=== PATIENT | female | born 1960 | race Hispanic/Latino ===

== ENCOUNTER 2020-11-08 15:09 | Inpatient (IN) | payer MEDICAID ==
[2020-11-08] VITALS (16 sets, daily range): BP systolic 169–213; BP diastolic 72–161
[~2020-11-08] VITALS: Ht 157.5 cm; Wt 51.3 kg
[2020-11-08 18:16] LABS: BASOPHILS % (AUTO) 0.6 % (0.0-5.0); EOSINOPHILS % (AUTO) 5.1 % (0.0-8.0); LYMPHOCYTES % (AUTO) 24.5 % (21.0-51.0); MEAN CORPUSCULAR HEMOGLOBIN 28.4 pg (27.0-33.0); MEAN CORPUSCULAR VOLUME 91.7 fL (79-99); MONOCYTES % (AUTO) 5.2 % (3.0-13.0); NEUTROPHILS % (AUTO) 64.1 % (40.0-77.0); PLATELET COUNT (AUTO) 187 K/uL (130-400); RED BLOOD CELL COUNT(AUTO) 3.38 MIL/uL (4.00-5.50); RED CELL DISTRIBUTION WIDTH 14.4 % (11.0-15.5); WHITE BLOOD COUNT (AUTO) 8.6 K/uL (4.8-10.8)
[2020-11-08 18:26] LABS: CREATININE 2.9 mg/dL (0.5-1.5); POTASSIUM 3.3 mmol/L (3.5-5.1)
[2020-11-08 18:27] LABS: PROTHROMBIN TIME 10.9 SEC (9.6-11.6)
[2020-11-08 18:30] LABS: ALBUMIN 2.4 g/dL (3.5-5.0); BILIRUBIN,TOTAL 0.4 mg/dL (0.2-1.0); CRP QUANTITATIVE 38.7 mg/L (0.00-9.0); MAGNESIUM 1.7 mg/dL (1.80-2.40); TOTAL PROTEIN, SERUM 7.9 g/dL (6.0-8.3)
[2020-11-08] MEDS ORDERED: ASPIRIN 81 MG EC TAB PO ONE (18:30)
[2020-11-08] MEDS ORDERED: MAGNESIUM 2GM PREMIX 50ML 50 ML IV SCH (19:00)
[2020-11-08] MEDS ORDERED: POTASSIUM CHLORIDE 20MEQ/100ML 100 ML IV PRN (19:00)
[2020-11-08] MEDS ORDERED: POTASSIUM CHLORIDE 10% ELIXIR 20 MEQ/15 ML UDCUP PO PRN (19:00)
[2020-11-08 19:10] LABS: ABG BASE EXCESS -5.8 mmol/L (-2.0-3.0); ABG HCO3 19.2 mmol/L (21.0-28.0); ABG OXYGEN SATURATION 90.1 % (95.0-99.0); ABG PCO2 36 mmHg (32-45)
[2020-11-08] MEDS: FUROSEMIDE 40MG VIAL IV SCH (19:17)
[2020-11-08] MEDS: CEFEPIME HCL 1 GM VIAL IVP SCH (19:17)
[2020-11-08 21:50] LABS: HEMOGLOBIN A1C 6.7 % (4.0-6.0)
[2020-11-08] MEDS: DOXYCYCLINE HYCLATE 100 MG TABLET PO SCH (22:17)
[2020-11-08] MEDS: SODIUM BICARBONATE 650 MG TAB PO SCH (22:20)
[2020-11-08 22:21] LABS: CREATININE 2.8 mg/dL (0.5-1.5); POTASSIUM 3.5 mmol/L (3.5-5.1); THYROID STIMULATING HORMONE 5.24 uIU/mL (0.36-3.74)
[2020-11-08] MEDS ORDERED: PHARMACY COMMUNICATION MISC SCH (23:30)
[2020-11-09] VITALS (43 sets, daily range): BP systolic 94–192; BP diastolic 53–105
[2020-11-09] MEDS: FUROSEMIDE 40MG VIAL IV SCH ×3 (03:13→18:08)
[2020-11-09] MEDS: NITROGLYCERIN 50MG/D5W 250ML 250 BOT IV SCH ×3 (03:21→16:00)
[2020-11-09 03:52] LABS: BASOPHILS % (AUTO) 0.3 % (0.0-5.0); EOSINOPHILS % (AUTO) 0.5 % (0.0-8.0); LYMPHOCYTES % (AUTO) 31.1 % (21.0-51.0); MEAN CORPUSCULAR HEMOGLOBIN 27.8 pg (27.0-33.0); MEAN CORPUSCULAR HGB CONC 31.1 g/dL (32.0-36.0); MEAN CORPUSCULAR VOLUME 89.4 fL (79-99); MONOCYTES % (AUTO) 8.3 % (3.0-13.0); NEUTROPHILS % (AUTO) 59.5 % (40.0-77.0); PLATELET COUNT (AUTO) 190 K/uL (130-400); RED BLOOD CELL COUNT(AUTO) 3.02 MIL/uL (4.00-5.50); RED CELL DISTRIBUTION WIDTH 14.3 % (11.0-15.5); WHITE BLOOD COUNT (AUTO) 6.1 K/uL (4.8-10.8)
[2020-11-09 04:13] LABS: CREATININE 2.9 mg/dL (0.5-1.5); MAGNESIUM 2.1 mg/dL (1.80-2.40); PHOSPHORUS 5.2 mg/dL (2.5-4.9); POTASSIUM 3.3 mmol/L (3.5-5.1)
[2020-11-09] MEDS: HYDRALAZINE 20MG/ML VIAL IV SCH ×2 (04:20→19:52)
[2020-11-09] MEDS ORDERED: AMLODIPINE 5 MG TAB PO SCH (10:00)
[2020-11-09 10:04] LABS: APPEARANCE,URINE Clear (CLEAR); BILIRUBIN,URINE Negative (NEGATIVE); COLOR,URINE Yellow (YELLOW); GLUCOSE, URINE (UA) Negative (NEGATIVE); KETONES,URINE Negative (NEGATIVE); LEUKOCYTE ESTERASE ,URINE Negative (NEGATIVE); NITRATE,URINE Negative (NEGATIVE); OCCULT BLOOD,URINE Negative (NEGATIVE); PROTEIN,URINE 300 mg/dL (NEGATIVE); UROBILINOGEN,URINE 0.2 mg/dL (0.2-1.0)
[2020-11-09 10:11] LABS: CREATININE 2.8 mg/dL (0.5-1.5); POTASSIUM 3.1 mmol/L (3.5-5.1)
[2020-11-09 10:22] LABS: BACTERIA,URINE None Seen /HPF (None Seen); RBC,URINE None Seen /HPF (0-1); WBC,URINE 0-1 /HPF (0-1)
[2020-11-09] MEDS: ASPIRIN 81 MG EC TAB PO SCH (10:23)
[2020-11-09] MEDS: DOXYCYCLINE HYCLATE 100 MG TABLET PO SCH ×2 (10:23→21:53)
[2020-11-09] MEDS: SODIUM BICARBONATE 650 MG TAB PO SCH ×2 (10:23→21:53)
[2020-11-09] MEDS: KCL 20 MEQ ERTAB PO PRN (10:26)
[2020-11-09] MEDS: TRAMADOL HCL 50 MG TABLET PO PRN ×2 (14:03→20:02)
[2020-11-09] MEDS: CARVEDILOL 12.5 MG TABLET PO SCH ×2 (14:50→21:54)
[2020-11-09 15:34] LABS: CREATINE KINASE, TOTAL 36 U/L (21-232); MYOGLOBIN 83 ng/mL (10-92)
[2020-11-09] MEDS ORDERED: LABETALOL 20MG SYG IV PRN (16:00)
[2020-11-09] MEDS: POTASSIUM CHLORIDE 20MEQ/100ML 100 ML IV PRN (16:51)
[2020-11-09] MEDS: CEFEPIME HCL 1 GM VIAL IVP SCH (18:08)
[2020-11-09] MEDS: AMLODIPINE 5 MG TAB PO SCH (21:53)
[2020-11-10] VITALS (21 sets, daily range): BP systolic 126–163; BP diastolic 51–90
[2020-11-10] MEDS: FUROSEMIDE 40MG VIAL IV SCH ×3 (02:58→18:47)
[2020-11-10 03:40] LABS: BASOPHILS % (AUTO) 0.6 % (0.0-5.0); EOSINOPHILS % (AUTO) 1.5 % (0.0-8.0); HEMATOCRIT 25.5 % (36-48); LYMPHOCYTES % (AUTO) 38.9 % (21.0-51.0); MEAN CORPUSCULAR HEMOGLOBIN 28.8 pg (27.0-33.0); MEAN CORPUSCULAR HGB CONC 31.8 g/dL (32.0-36.0); MEAN CORPUSCULAR VOLUME 90.7 fL (79-99); MONOCYTES % (AUTO) 6.5 % (3.0-13.0); NEUTROPHILS % (AUTO) 52.3 % (40.0-77.0); PLATELET COUNT (AUTO) 162 K/uL (130-400); RED BLOOD CELL COUNT(AUTO) 2.81 MIL/uL (4.00-5.50); RED CELL DISTRIBUTION WIDTH 14.6 % (11.0-15.5); WHITE BLOOD COUNT (AUTO) 5.4 K/uL (4.8-10.8)
[2020-11-10 03:53] LABS: % IRON SATURATION 26.4 % (22-44)
[2020-11-10 03:58] LABS: CREATININE 3.3 mg/dL (0.5-1.5); PHOSPHORUS 4.8 mg/dL (2.5-4.9); POTASSIUM 3.8 mmol/L (3.5-5.1)
[2020-11-10] MEDS: ASPIRIN 81 MG EC TAB PO SCH (09:49)
[2020-11-10] MEDS: CARVEDILOL 12.5 MG TABLET PO SCH ×2 (09:49→21:18)
[2020-11-10] MEDS: DOXYCYCLINE HYCLATE 100 MG TABLET PO SCH ×2 (09:49→21:18)
[2020-11-10] MEDS: AMLODIPINE 5 MG TAB PO SCH ×2 (09:50→21:18)
[2020-11-10] MEDS: SODIUM BICARBONATE 650 MG TAB PO SCH ×2 (09:50→21:18)
[2020-11-10] MEDS: CEFEPIME HCL 1 GM VIAL IVP SCH (18:47)
[2020-11-10] MEDS: TRAMADOL HCL 50 MG TABLET PO PRN (21:19)
[2020-11-11] MEDS: FUROSEMIDE 40MG VIAL IV SCH ×3 (03:16→19:46)
[2020-11-11 04:12] VITALS: BP 157/58
[2020-11-11 05:30] LABS: BASOPHILS % (AUTO) 0.9 % (0.0-5.0); EOSINOPHILS % (AUTO) 4.5 % (0.0-8.0); HEMATOCRIT 28.2 % (36-48); LYMPHOCYTES % (AUTO) 38.6 % (21.0-51.0); MEAN CORPUSCULAR HEMOGLOBIN 28.2 pg (27.0-33.0); MEAN CORPUSCULAR HGB CONC 31.2 g/dL (32.0-36.0); MEAN CORPUSCULAR VOLUME 90.4 fL (79-99); MONOCYTES % (AUTO) 6.2 % (3.0-13.0); NEUTROPHILS % (AUTO) 49.6 % (40.0-77.0); PLATELET COUNT (AUTO) 184 K/uL (130-400); RED BLOOD CELL COUNT(AUTO) 3.12 MIL/uL (4.00-5.50); RED CELL DISTRIBUTION WIDTH 14.3 % (11.0-15.5); WHITE BLOOD COUNT (AUTO) 5.8 K/uL (4.8-10.8)
[2020-11-11 06:00] LABS: CREATININE 3.3 mg/dL (0.5-1.5); PHOSPHORUS 4.8 mg/dL (2.5-4.9); POTASSIUM 3.5 mmol/L (3.5-5.1)
[2020-11-11 08:00] VITALS: BP 152/58
[2020-11-11] MEDS: DOXYCYCLINE HYCLATE 100 MG TABLET PO SCH ×2 (09:32→19:47)
[2020-11-11] MEDS: SODIUM BICARBONATE 650 MG TAB PO SCH ×2 (09:32→19:47)
[2020-11-11] MEDS: ASPIRIN 81 MG EC TAB PO SCH (09:32)
[2020-11-11] MEDS: CARVEDILOL 12.5 MG TABLET PO SCH ×2 (09:33→19:47)
[2020-11-11] MEDS: AMLODIPINE 5 MG TAB PO SCH ×2 (09:33→19:47)
[2020-11-11 12:00] VITALS: BP 161/57
[2020-11-11 14:56] LABS: HEMATOCRIT 26.7 % (36-48)
[2020-11-11 15:22] LABS: CREATININE 3.3 mg/dL (0.5-1.5)
[2020-11-11 15:29] LABS: HEMOGLOBIN A1C 6.3 % (4.0-6.0)
[2020-11-11 15:51] LABS: % IRON SATURATION 36.4 % (22-44)
[2020-11-11 16:00] VITALS: BP 150/54
[2020-11-11 19:00] VITALS: BP 139/68
[2020-11-11] MEDS: CEFEPIME HCL 1 GM VIAL IVP SCH (19:46)
[2020-11-11 23:46] VITALS: BP 151/66
[2020-11-12] VITALS (24 sets, daily range): BP systolic 135–174; BP diastolic 61–95
[2020-11-12] MEDS: FUROSEMIDE 40MG VIAL IV SCH (03:16)
[2020-11-12 05:21] LABS: BASOPHILS % (AUTO) 0.8 % (0.0-5.0); HEMATOCRIT 29.8 % (36-48); LYMPHOCYTES % (AUTO) 39.5 % (21.0-51.0); MEAN CORPUSCULAR HEMOGLOBIN 28.4 pg (27.0-33.0); MEAN CORPUSCULAR HGB CONC 32.2 g/dL (32.0-36.0); MEAN CORPUSCULAR VOLUME 88.2 fL (79-99); MONOCYTES % (AUTO) 5.4 % (3.0-13.0); PLATELET COUNT (AUTO) 225 K/uL (130-400); RED BLOOD CELL COUNT(AUTO) 3.38 MIL/uL (4.00-5.50); RED CELL DISTRIBUTION WIDTH 14.1 % (11.0-15.5); WHITE BLOOD COUNT (AUTO) 6.5 K/uL (4.8-10.8)
[2020-11-12 05:36] LABS: ALBUMIN 2.1 g/dL (3.5-5.0); BILIRUBIN,TOTAL 0.3 mg/dL (0.2-1.0); CREATININE 3.2 mg/dL (0.5-1.5); MAGNESIUM 1.9 mg/dL (1.80-2.40); PHOSPHORUS 5.4 mg/dL (2.5-4.9); TOTAL PROTEIN, SERUM 7.4 g/dL (6.0-8.3)
[2020-11-12] MEDS: LIDOCAINE HCL-MPF 1% 2ML VIAL IV PRN ×2 (05:57→13:21)
[2020-11-12] MEDS: POTASSIUM CHLORIDE 20MEQ/100ML 100 ML IV PRN ×2 (05:58→13:21)
[2020-11-12] MEDS: ASPIRIN 81 MG EC TAB PO SCH (09:00)
[2020-11-12] MEDS: SODIUM BICARBONATE 650 MG TAB PO SCH ×2 (09:00→21:54)
[2020-11-12] MEDS: AMLODIPINE 5 MG TAB PO SCH ×2 (09:32→21:54)
[2020-11-12] MEDS: CARVEDILOL 12.5 MG TABLET PO SCH ×2 (09:32→21:55)
[2020-11-12] MEDS ORDERED: HEPARIN 1,000 UNIT VIAL ONE (10:24)
[2020-11-12] MEDS ORDERED: LIDOCAINE HCL 400MG/20ML VIAL ONE (10:24)
[2020-11-12] MEDS ORDERED: SODIUM BICARB 50MEQ 50ML VIAL 50 ML ONE (10:24)
[2020-11-12] MEDS ORDERED: HEPARIN 5,000 UNIT VIAL ONE (17:04)
[2020-11-12] MEDS ORDERED: SODIUM CHLORIDE 3% FOR INHALATION 4 ML/AMP VIAL.NEB IH ONE (23:17)
[2020-11-12] MEDS: IPRATROPIUM 0.5 MG/2.5 ML INH IH SCH (23:20)
[2020-11-13] VITALS (20 sets, daily range): BP systolic 70–159; BP diastolic 53–88
[2020-11-13 05:09] LABS: HEMATOCRIT 28.1 % (36-48); MEAN CORPUSCULAR HEMOGLOBIN 27.9 pg (27.0-33.0); RED BLOOD CELL COUNT(AUTO) 3.23 MIL/uL (4.00-5.50); RED CELL DISTRIBUTION WIDTH 13.5 % (11.0-15.5); WHITE BLOOD COUNT (AUTO) 6.3 K/uL (4.8-10.8)
[2020-11-13 05:33] LABS: CREATININE 2.3 mg/dL (0.5-1.5); POTASSIUM 3.3 mmol/L (3.5-5.1)
[2020-11-13 06:16] LABS: HEPATITIS Bs ANTIGEN SCREEN P Negative (Negative)
[2020-11-13] MEDS: IPRATROPIUM 0.5 MG/2.5 ML INH IH SCH ×3 (06:54→19:14)
[2020-11-13] MEDS: AMLODIPINE 5 MG TAB PO SCH ×2 (09:09→21:23)
[2020-11-13] MEDS: SODIUM BICARBONATE 650 MG TAB PO SCH ×2 (09:09→21:23)
[2020-11-13] MEDS: ASPIRIN 81 MG EC TAB PO SCH (09:09)
[2020-11-13] MEDS: CARVEDILOL 12.5 MG TABLET PO SCH ×2 (09:12→21:23)
[2020-11-13] MEDS: HEPARIN 5,000 UNIT VIAL SQ PRN (13:06)
[2020-11-14] VITALS (22 sets, daily range): BP systolic 105–165; BP diastolic 44–94
[2020-11-14] MEDS: IPRATROPIUM 0.5 MG/2.5 ML INH IH SCH ×5 (00:06→23:31)
[2020-11-14] MEDS: ASPIRIN 81 MG EC TAB PO SCH (08:55)
[2020-11-14] MEDS: AMLODIPINE 5 MG TAB PO SCH (08:55)
[2020-11-14] MEDS: SODIUM BICARBONATE 650 MG TAB PO SCH ×2 (08:55→20:53)
[2020-11-14] MEDS: CARVEDILOL 12.5 MG TABLET PO SCH ×2 (08:56→20:53)
[2020-11-14 10:19] LABS: HEMATOCRIT 28.5 % (36-48); MEAN CORPUSCULAR HEMOGLOBIN 28.3 pg (27.0-33.0); MEAN CORPUSCULAR HGB CONC 32.6 g/dL (32.0-36.0); MEAN CORPUSCULAR VOLUME 86.6 fL (79-99); RED BLOOD CELL COUNT(AUTO) 3.29 MIL/uL (4.00-5.50); RETICULOCYTE % (AUTO) 1.53 % (0.42-2.23); WHITE BLOOD COUNT (AUTO) 7.2 K/uL (4.8-10.8)
[2020-11-14 10:42] LABS: CREATININE 2.2 mg/dL (0.5-1.5); THYROID STIMULATING HORMONE 11.63 uIU/mL (0.36-3.74)
[2020-11-14 10:43] LABS: % IRON SATURATION 31.8 % (22-44)
[2020-11-14 10:47] LABS: POTASSIUM 2.9 mmol/L (3.5-5.1)
[2020-11-14] MEDS: KCL 20 MEQ ERTAB PO PRN (11:12)
[2020-11-15] VITALS (7 sets, daily range): BP systolic 110–140; BP diastolic 49–90
[2020-11-15] MEDS: ACETAMINOPHEN 325 MG TAB PO PRN (04:33)
[2020-11-15 05:45] LABS: MEAN CORPUSCULAR HEMOGLOBIN 27.6 pg (27.0-33.0); MEAN CORPUSCULAR HGB CONC 31.7 g/dL (32.0-36.0); MEAN CORPUSCULAR VOLUME 87.2 fL (79-99); PLATELET COUNT (AUTO) 205 K/uL (130-400); RED BLOOD CELL COUNT(AUTO) 3.44 MIL/uL (4.00-5.50); RED CELL DISTRIBUTION WIDTH 13.7 % (11.0-15.5); WHITE BLOOD COUNT (AUTO) 9.5 K/uL (4.8-10.8)
[2020-11-15 06:29] LABS: CREATININE 2.3 mg/dL (0.5-1.5); MAGNESIUM 1.7 mg/dL (1.80-2.40); PHOSPHORUS 4.2 mg/dL (2.5-4.9); POTASSIUM 3.7 mmol/L (3.5-5.1)
[2020-11-15] MEDS: IPRATROPIUM 0.5 MG/2.5 ML INH IH SCH ×3 (07:20→18:00)
[2020-11-15 08:35] LABS: EOSINOPHILS % (MANUAL) 2 % (1-6); LYMPHOCYTES % (MANUAL) 36 % (22-44); MAN.DIFF COMMENT-IMPRESSION MANUAL DIFFERENTIAL; MONOCYTES % (MANUAL) 6 % (2-9); PLATELET MORPHOLOGY COMMENT ADEQUATE; SEGMENTED NEUTROPHILS % 56 % (40-70)
[2020-11-15] MEDS: AMLODIPINE 2.5 MG TAB PO SCH (09:51)
[2020-11-15] MEDS: LOSARTAN 25 MG TABLET PO SCH (09:51)
[2020-11-15] MEDS: ASPIRIN 81 MG EC TAB PO SCH (09:52)
[2020-11-15] MEDS: CARVEDILOL 12.5 MG TABLET PO SCH ×2 (09:52→20:54)
[2020-11-15] MEDS: SODIUM BICARBONATE 650 MG TAB PO SCH ×2 (09:52→20:54)
[2020-11-16] MEDS: IPRATROPIUM 0.5 MG/2.5 ML INH IH SCH ×4 (01:45→18:35)
[2020-11-16 04:00] VITALS: BP 130/48
[2020-11-16 05:52] LABS: BASOPHILS % (AUTO) 0.7 % (0.0-5.0); EOSINOPHILS % (AUTO) 3.5 % (0.0-8.0); HEMATOCRIT 27.9 % (36-48); LYMPHOCYTES % (AUTO) 33.8 % (21.0-51.0); MEAN CORPUSCULAR HEMOGLOBIN 28.7 pg (27.0-33.0); MEAN CORPUSCULAR VOLUME 86.9 fL (79-99); MONOCYTES % (AUTO) 6.2 % (3.0-13.0); NEUTROPHILS % (AUTO) 55.4 % (40.0-77.0); PLATELET COUNT (AUTO) 217 K/uL (130-400); RED BLOOD CELL COUNT(AUTO) 3.21 MIL/uL (4.00-5.50); RED CELL DISTRIBUTION WIDTH 13.8 % (11.0-15.5); WHITE BLOOD COUNT (AUTO) 10.6 K/uL (4.8-10.8)
[2020-11-16 06:11] LABS: INR 0.98 (0.85-1.15); PROTHROMBIN TIME 10.7 SEC (9.6-11.6)
[2020-11-16 06:32] LABS: ALBUMIN 2.3 g/dL (3.5-5.0); BILIRUBIN,TOTAL 0.4 mg/dL (0.2-1.0); CREATININE 2.6 mg/dL (0.5-1.5); POTASSIUM 3.6 mmol/L (3.5-5.1); TOTAL PROTEIN, SERUM 7.2 g/dL (6.0-8.3)
[2020-11-16 08:00] VITALS: BP 133/42
[2020-11-16] MEDS: LOSARTAN 25 MG TABLET PO SCH (09:38)
[2020-11-16] MEDS: KCL 20 MEQ ERTAB PO PRN (09:38)
[2020-11-16] MEDS: SODIUM BICARBONATE 650 MG TAB PO SCH ×2 (09:41→20:57)
[2020-11-16] MEDS: CARVEDILOL 12.5 MG TABLET PO SCH ×2 (09:41→20:58)
[2020-11-16] MEDS: ASPIRIN 81 MG EC TAB PO SCH (09:41)
[2020-11-16] MEDS: AMLODIPINE 2.5 MG TAB PO SCH (09:41)
[2020-11-16 12:00] VITALS: BP 128/44
[2020-11-16 16:00] VITALS: BP 150/50
[2020-11-16 20:09] VITALS: BP 120/48
[2020-11-16 23:59] VITALS: BP 144/62
[2020-11-17] VITALS (37 sets, daily range): BP systolic 112–167; BP diastolic 35–78
[2020-11-17] MEDS: IPRATROPIUM 0.5 MG/2.5 ML INH IH SCH ×4 (00:05→18:37)
[2020-11-17 05:26] LABS: BASOPHILS % (AUTO) 0.8 % (0.0-5.0); EOSINOPHILS % (AUTO) 3.7 % (0.0-8.0); HEMATOCRIT 27.9 % (36-48); LYMPHOCYTES % (AUTO) 31.6 % (21.0-51.0); MEAN CORPUSCULAR HEMOGLOBIN 27.6 pg (27.0-33.0); MEAN CORPUSCULAR HGB CONC 30.8 g/dL (32.0-36.0); MEAN CORPUSCULAR VOLUME 89.4 fL (79-99); MONOCYTES % (AUTO) 6.7 % (3.0-13.0); NEUTROPHILS % (AUTO) 56.7 % (40.0-77.0); PLATELET COUNT (AUTO) 244 K/uL (130-400); RED BLOOD CELL COUNT(AUTO) 3.12 MIL/uL (4.00-5.50); RED CELL DISTRIBUTION WIDTH 14.1 % (11.0-15.5); WHITE BLOOD COUNT (AUTO) 10.1 K/uL (4.8-10.8)
[2020-11-17 05:39] LABS: INR 0.97 (0.85-1.15); PROTHROMBIN TIME 10.6 SEC (9.6-11.6)
[2020-11-17 05:40] LABS: PARTIAL THROMBOPLASTIN TIME 24.4 SEC (26.3-35.5)
[2020-11-17 05:42] LABS: ALBUMIN 2.4 g/dL (3.5-5.0); BILIRUBIN,TOTAL 0.3 mg/dL (0.2-1.0); CREATININE 2.7 mg/dL (0.5-1.5); POTASSIUM 3.9 mmol/L (3.5-5.1); TOTAL PROTEIN, SERUM 7.5 g/dL (6.0-8.3)
[2020-11-17] MEDS ORDERED: CEFAZOLIN SODIUM 1 GM VIAL IVP PRN (08:00)
[2020-11-17] MEDS ORDERED: CEFAZOLIN SODIUM 1 GM VIAL ONE ×2 (08:58→09:23)
[2020-11-17] MEDS ORDERED: BUPIVACAINE/PF 0.5% 30ML VIAL ONE (08:58)
[2020-11-17] MEDS ORDERED: LIDOCAINE HCL 1% 20 ML VIAL ONE (08:58)
[2020-11-17] MEDS ORDERED: KETAMINE 50MG/ML SYRINGE 50 MG/ML DISP.SYRIN IV ONE (09:21)
[2020-11-17] MEDS ORDERED: LIDOCAINE PF 100MG/5ML (2%) SYRINGE 5ML ONE (09:22)
[2020-11-17] MEDS ORDERED: PROPOFOL 10 MG/ML 20ML VIAL IV ONE (09:22)
[2020-11-17] MEDS ORDERED: TRAMADOL HCL 50 MG TABLET PO PRN ×2 (09:30)
[2020-11-17] MEDS ORDERED: ACETAMINOPHEN 325 MG TAB PO PRN (09:30)
[2020-11-17] MEDS ORDERED: HEPARIN 10,000 UNIT/10ML (1,000 UNIT/ML) VIAL ONE (09:41)
[2020-11-17] MEDS ORDERED: EPHEDRINE SULFATE 50 MG/ML AMPULE ONE (09:45)
[2020-11-17] MEDS: SODIUM BICARBONATE 650 MG TAB PO SCH ×2 (09:56→21:11)
[2020-11-17] MEDS: LOSARTAN 25 MG TABLET PO SCH (09:56)
[2020-11-17] MEDS: ASPIRIN 81 MG EC TAB PO SCH (09:56)
[2020-11-17] MEDS: AMLODIPINE 2.5 MG TAB PO SCH (09:56)
[2020-11-17] MEDS: CARVEDILOL 12.5 MG TABLET PO SCH ×2 (09:57→21:11)
[2020-11-17] MEDS ORDERED: PROTAMINE SULFATE 10 MG/ML 5 ML VIAL ONE (10:36)
[2020-11-17] MEDS ORDERED: ONDANSETRON 4MG INJ ONE (10:52)
[2020-11-17] MEDS: HEPARIN 5,000 UNIT VIAL SQ PRN (18:24)
[2020-11-18 03:41] VITALS: BP 163/52
[2020-11-18 05:17] LABS: HEMATOCRIT 27.3 % (36-48); MEAN CORPUSCULAR HEMOGLOBIN 28.6 pg (27.0-33.0); MEAN CORPUSCULAR HGB CONC 31.5 g/dL (32.0-36.0); MEAN CORPUSCULAR VOLUME 90.7 fL (79-99); PLATELET COUNT (AUTO) 203 K/uL (130-400); RED BLOOD CELL COUNT(AUTO) 3.01 MIL/uL (4.00-5.50); RED CELL DISTRIBUTION WIDTH 14.4 % (11.0-15.5); WHITE BLOOD COUNT (AUTO) 11.4 K/uL (4.8-10.8)
[2020-11-18 05:35] LABS: ALBUMIN 2.3 g/dL (3.5-5.0); BILIRUBIN,TOTAL 0.4 mg/dL (0.2-1.0); POTASSIUM 4.7 mmol/L (3.5-5.1); TOTAL PROTEIN, SERUM 7.4 g/dL (6.0-8.3)
[2020-11-18] MEDS: IPRATROPIUM 0.5 MG/2.5 ML INH IH SCH ×4 (06:36→18:33)
[2020-11-18 07:12] LABS: LYMPHOCYTES % (MANUAL) 22 % (22-44); MAN.DIFF COMMENT-IMPRESSION MANUAL DIFFERENTIAL; MONOCYTES % (MANUAL) 6 % (2-9); PLATELET MORPHOLOGY COMMENT ADEQUATE; SEGMENTED NEUTROPHILS % 72 % (40-70)
[2020-11-18 07:30] VITALS: BP 163/59
[2020-11-18] MEDS: AMLODIPINE 2.5 MG TAB PO SCH (07:57)
[2020-11-18] MEDS: LOSARTAN 25 MG TABLET PO SCH (07:57)
[2020-11-18] MEDS: SODIUM BICARBONATE 650 MG TAB PO SCH (07:57)
[2020-11-18] MEDS: CARVEDILOL 12.5 MG TABLET PO SCH (07:57)
[2020-11-18] MEDS: ASPIRIN 81 MG EC TAB PO SCH (07:57)
[2020-11-18] MEDS: ACETAMINOPHEN 325 MG TAB PO PRN (07:58)
[2020-11-18 11:00] VITALS: BP 136/56
[2020-11-18] MEDS ORDERED: LOSA25TA2 PO (11:21)
[2020-11-18] MEDS ORDERED: SODI650T PO (11:21)
[2020-11-18] MEDS ORDERED: CARV12.580 PO (11:21)
[2020-11-18] MEDS ORDERED: AEC81 PO (11:21)
[2020-11-18] MEDS ORDERED: AMLO2.5T2 PO (11:21)
[2020-11-18] MEDS ORDERED: ONDANSETRON 4MG INJ ONE (12:46)
[2020-11-18] MEDS ORDERED: ONDANSETRON 4MG INJ IVP PRN ×2 (13:00)
[2020-11-18] MEDS ORDERED: ONDANSETRON 4MG TABLET PO PRN (13:00)
[2020-11-18 16:00] VITALS: BP 132/64
== END 2020-11-18 19:33 | disposition home or self-care (01) | DRG 444 ==
LOC: 2CH 17:08 → 2DH 11-10 06:04 → 3BH 11-10 15:59
PROVIDERS: ADMIT Internal Medicine; ATTEND Internal Medicine
PROC: 5A09357 Assistance with Respiratory Ventilation, Less than 24 Consecutive Hours, Continuous Positive Airway Pressure (ICD-10-PCS; 2020-11-08)
PROC: 5A09357 Assistance with Respiratory Ventilation, Less than 24 Consecutive Hours, Continuous Positive Airway Pressure (ICD-10-PCS; 2020-11-09)
PROC: 5A1D70Z Performance of Urinary Filtration, Intermittent, Less than 6 Hours Per Day (ICD-10-PCS; 2020-11-12)
PROC: 0J2VXYZ Change Other Device in Upper Extremity Subcutaneous Tissue and Fascia, External Approach (ICD-10-PCS; 2020-11-12)
PROC: 02PAX3Z Removal of Infusion Device from Heart, External Approach (ICD-10-PCS; 2020-11-12)
PROC: 02H633Z Insertion of Infusion Device into Right Atrium, Percutaneous Approach (ICD-10-PCS; 2020-11-12)
PROC: 5A1D70Z Performance of Urinary Filtration, Intermittent, Less than 6 Hours Per Day (ICD-10-PCS; 2020-11-13)
PROC: 5A1D70Z Performance of Urinary Filtration, Intermittent, Less than 6 Hours Per Day (ICD-10-PCS; 2020-11-14)
PROC: 03180ZD Bypass Left Brachial Artery to Upper Arm Vein, Open Approach (ICD-10-PCS; principal; 2020-11-17 09:56)
PROC: 5A1D70Z Performance of Urinary Filtration, Intermittent, Less than 6 Hours Per Day (ICD-10-PCS; 2020-11-18)
DX: N17.9 Acute kidney failure, unspecified (principal); J96.01 Acute respiratory failure with hypoxia; I21.A1 Myocardial infarction type 2; I13.2 Hypertensive heart and chronic kidney disease with heart failure and with stage 5 chronic kidney disease, or end stage renal disease; I50.43 Acute on chronic combined systolic (congestive) and diastolic (congestive) heart failure; E11.22 Type 2 diabetes mellitus with diabetic chronic kidney disease; J18.9 Pneumonia, unspecified organism; E44.0 Moderate protein-calorie malnutrition; T82.514A Breakdown (mechanical) of infusion catheter, initial encounter; E87.2 Acidosis; N18.6 End stage renal disease; I16.1 Hypertensive emergency; R54 Age-related physical debility; E87.6 Hypokalemia; E83.42 Hypomagnesemia; E11.65 Type 2 diabetes mellitus with hyperglycemia; E88.09 Other disorders of plasma-protein metabolism, not elsewhere classified; E78.5 Hyperlipidemia, unspecified; D63.8 Anemia in other chronic diseases classified elsewhere; Z20.822 Contact with and (suspected) exposure to COVID-19; E03.9 Hypothyroidism, unspecified; E87.5 Hyperkalemia; F41.9 Anxiety disorder, unspecified; I25.10 Atherosclerotic heart disease of native coronary artery without angina pectoris; Y83.8 Other surgical procedures as the cause of abnormal reaction of the patient, or of later complication, without mention of misadventure at the time of the procedure; Y92.89 Other specified places as the place of occurrence of the external cause; Z68.20 Body mass index [BMI] 20.0-20.9, adult; I25.2 Old myocardial infarction; Z99.2 Dependence on renal dialysis; Z91.15 Patient's noncompliance with renal dialysis; Z91.14 Patient's other noncompliance with medication regimen; Z91.19 Patient's noncompliance with other medical treatment and regimen; Z89.411 Acquired absence of right great toe; Z83.3 Family history of diabetes mellitus; Z82.49 Family history of ischemic heart disease and other diseases of the circulatory system
CPT/HCPCS: 36415; 36581; 36600; 71045; 76770; 77001; 80048; 80053; 80061; 81001; 82040; 82550; 82565; 82728; 82803; 82948; 83036; 83540; 83550; 83735; 83874; 83880; 84100; 84145; 84443; 84484; 84520; 85014; 85018; 85025; 85027; 85045; 85610; 85730; 86140; 86701; 86704; 86706; 86850; 86900; 86901; 87071; 87205; 87340; 87390; 87635; 87804; 90935; 93005; 93306; 93356; 93970; 93971; 94640; 94660; 94664; 97039; A4344; C1750; G0378; J0360; J0690; J0692; J1644; J1940; J2001; J2405; J2704; J2720; J3475; J3480; J3490

== ENCOUNTER 2021-01-08 15:52 | Inpatient (IN) | payer MEDICAID ==
[~2021-01-08] VITALS: Ht 152.4 cm; Wt 55.7 kg
[~2021-01-08 15:52] MED LIST: AEC81 PO; AMLO2.5T2 PO; CARV12.580 PO; LOSA25TA2 PO; SODI650T PO
[2021-01-08 19:00] VITALS: BP 150/42
[2021-01-08] MEDS ORDERED: GUAIFENESIN-DM 200/20 MG 10 ML PO PRN (19:00)
[2021-01-08] MEDS ORDERED: ACETAMINOPHEN 325 MG TAB PO PRN ×2 (19:00)
[2021-01-08] MEDS ORDERED: VANCOMYCIN PROTOCOL PER PHARMACY IV PRN (19:00)
[2021-01-08] MEDS ORDERED: LACTULOSE 20 GM/30 ML UDCUP PO PRN (19:00)
[2021-01-08] MEDS ORDERED: ONDANSETRON 4MG INJ IV PRN (19:00)
[2021-01-08] MEDS ORDERED: HYDRALAZINE 20MG/ML VIAL IV PRN (19:00)
[2021-01-08 19:12] LABS: EOSINOPHILS % (AUTO) 7.5 % (0.0-8.0); HEMATOCRIT 29.1 % (36-48); LYMPHOCYTES % (AUTO) 22.7 % (21.0-51.0); MEAN CORPUSCULAR HEMOGLOBIN 29.1 pg (27.0-33.0); MEAN CORPUSCULAR HGB CONC 30.9 g/dL (32.0-36.0); MEAN CORPUSCULAR VOLUME 94.2 fL (79-99); MONOCYTES % (AUTO) 9.4 % (3.0-13.0); NEUTROPHILS % (AUTO) 58.8 % (40.0-77.0); PLATELET COUNT (AUTO) 225 K/uL (130-400); RED BLOOD CELL COUNT(AUTO) 3.09 MIL/uL (4.00-5.50); RED CELL DISTRIBUTION WIDTH 15.4 % (11.0-15.5); WHITE BLOOD COUNT (AUTO) 9.9 K/uL (4.8-10.8)
[2021-01-08 19:23] LABS: CREATININE 3.5 mg/dL (0.5-1.5); POTASSIUM 3.6 mmol/L (3.5-5.1)
[2021-01-08 19:25] LABS: INR 0.99 (0.85-1.15); PROTHROMBIN TIME 10.8 SEC (9.6-11.6)
[2021-01-08 19:32] LABS: ALBUMIN 2.6 g/dL (3.5-5.0); PHOSPHORUS 6.1 mg/dL (2.5-4.9)
[2021-01-08] MEDS ORDERED: VANCOMYCIN 750MG VIAL IVPB SCH (20:00)
[2021-01-08] MEDS ORDERED: 0.9% NACL 250ML 250 ML IV SCH (20:00)
[2021-01-08] MEDS: HEPARIN 5,000 UNIT VIAL SQ SCH ×2 (20:21→22:40)
[2021-01-08] MEDS: FAMOTIDINE 20MG VIAL IV SCH (21:18)
[2021-01-08] MEDS ORDERED: FURO40TA5 PO (23:02)
[2021-01-08] MEDS ORDERED: SPIR25TA6 PO (23:02)
[2021-01-08] MEDS ORDERED: ATOR40TA71 PO (23:02)
[2021-01-09] VITALS (25 sets, daily range): BP systolic 128–193; BP diastolic 47–110
[2021-01-09 01:25] LABS: HEMOGLOBIN A1C 6.1 % (4.0-6.0)
[2021-01-09 01:34] LABS: CHOLESTEROL 164 mg/dL (<200); HDL CHOLESTEROL 63 mg/dL (35-85); LDL DIRECT 88 mg/dL (0-99); TRIGLYCERIDES 56 mg/dL (30-200)
[2021-01-09 01:52] LABS: AMPHET/METH SCREEN,URINE NEGATIVE (NEGATIVE); BARBITURATE SCREEN, URINE NEGATIVE (NEGATIVE); BENZODIAZEPINES SCREEN,URINE NEGATIVE (NEGATIVE); CANNABINOID SCREEN,URINE NEGATIVE (NEGATIVE); COCAINE SCREEN,URINE NEGATIVE (NEGATIVE); OPIATE SCREEN,URINE NEGATIVE (NEGATIVE); PHENCYCLIDINE SCREEN,URINE NEGATIVE (NEGATIVE)
[2021-01-09] MEDS: INSULIN HUMULIN R 100 UNIT/ML 3ML SQ SCH ×4 (05:52→20:32)
[2021-01-09] MEDS: FAMOTIDINE 20MG VIAL IV SCH ×2 (08:56→20:30)
[2021-01-09] MEDS: HEPARIN 5,000 UNIT VIAL SQ SCH ×3 (09:00→20:32)
[2021-01-09] MEDS ORDERED: MIDAZOLAM HCL 1 MG/ML 2ML VIAL ONE (10:48)
[2021-01-09] MEDS ORDERED: FLUMAZENIL 0.1MG/1ML 5ML VIAL IV ONE (10:48)
[2021-01-09] MEDS ORDERED: FENTANYL CITRATE PF 50 MCG/1 ML 2ML VIAL ONE (10:48)
[2021-01-09] MEDS ORDERED: NALOXONE HCL 0.4 MG/1 ML ML ONE (10:49)
[2021-01-10] MEDS ORDERED: VANCOMYCIN 500MG+NS 100ML IVPB IV SCH (09:00)
[2021-01-10] MEDS ORDERED: 0.9%NACL 100ML 100 ML IV SCH (09:00)
== END 2021-01-09 22:45 | disposition short-term general hospital (02) | DRG 198 ==
LOC: 4CH 16:20
PROVIDERS: ADMIT Internal Medicine; ATTEND Internal Medicine
PROC: 5A1D70Z Performance of Urinary Filtration, Intermittent, Less than 6 Hours Per Day (ICD-10-PCS; principal; 2021-01-09)
PROC: B246ZZ4 Ultrasonography of Right and Left Heart, Transesophageal (ICD-10-PCS; 2021-01-09)
DX: I25.10 Atherosclerotic heart disease of native coronary artery without angina pectoris (principal); I13.2 Hypertensive heart and chronic kidney disease with heart failure and with stage 5 chronic kidney disease, or end stage renal disease; E11.22 Type 2 diabetes mellitus with diabetic chronic kidney disease; N18.6 End stage renal disease; I25.2 Old myocardial infarction; I50.9 Heart failure, unspecified; F14.10 Cocaine abuse, uncomplicated; E03.9 Hypothyroidism, unspecified; D64.9 Anemia, unspecified; E78.5 Hyperlipidemia, unspecified; Z99.2 Dependence on renal dialysis; Z87.81 Personal history of (healed) traumatic fracture; Z91.19 Patient's noncompliance with other medical treatment and regimen; Z83.3 Family history of diabetes mellitus; Z82.49 Family history of ischemic heart disease and other diseases of the circulatory system; Z20.822 Contact with and (suspected) exposure to COVID-19
CPT/HCPCS: 36415; 71045; 78582; 80061; 80069; 80305; 82948; 83036; 84484; 85025; 85378; 85610; 85730; 87635; 87641; 90935; 93005; 93313; A9540; A9558; G0378; J1644; J2250; J2310; J3010; J3490